=== PATIENT | female | born 1995 ===

== ENCOUNTER 2020-10-18 09:30 | Outpatient (RCR) | payer OTHER, SELFPAY ==
[2020-09-28 12:25] VITALS: BMI 28.2
--- NOTE | 2020-09-28 12:44 | PC.ADMIT ---
Patient is a 25 year old female who was seen by [facility] crisis, as suggested by her OBGYN, who referred patient to [facility] d/t increased depression with SI and increased anxiety secondary to being 22 weeks and having relationship issues with the father of her unborn child whom she lives with. Prior to crisis evaluation it was reported that patient tried to drown herself in the bathtub however stopped herself as she thought about her unborn child. Patient reports increased depression since . Feeling overwhelmed and alone. Reports she has a sister who is supportive who she can reach out to if feeling unsafe. Patient reports she is currently taking 4 college courses that will be completed in October however is struggling in her classes d/t symptoms. Reports trauma history. She started seeing a therapist in 9th grade. Patient is alert and oriented x4. Calm and cooperative. Presents with depressed mood and affect. Denied Si. Asked patient if she started to feel unsafe who could she contact, patient stated her sister who is supportive. Patient also has the crisis number if needed. Patient gave verbal permission to email her a copy of her safety plan. Medications reconciled with patient and patient's pharmacy.
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
--- NOTE | 2020-09-29 10:21 | PC.NURSE ---
Margaret called Jil this morning and stated she was in the ER all night last night and needs to rest therefore will not be attending the program today. She did not elaborate as to why she was in the ER. I called patient and left a message for her to call me back to F/U.
--- NOTE | 2020-09-29 10:59 | PC.NURSE ---
Patient called me back. She stated that she was instructed by her batch mixer operator to go to the ER to get treatment for a bladder infection. Patient stated that she and the baby are ok and was prescribed antibiotics. Patient stated she spent the majority of the night in the ER. Plans on returning to [facility] on Friday.
--- NOTE | 2020-10-06 09:33 | PC.NURSE ---
Clara was scheduled to see the prescriber today 10/06/20 at 1:00 however she is not in the program today as she told [employer] that she was not going to be attending PHP on 10/06/20.
--- NOTE | 2020-10-06 13:35 | PC.NURSE ---
I called and placed a referral to [facility] for pt at her request.
--- NOTE | 2020-10-09 14:17 | HO.PHPPROGNO ---
Subjective Subjective Date of Service: 10/09/20 Reason For Visit: MDD F32.9, History of Trauma Z91.49, Z65.8 Guardianship: No Medical Problems Affecting Mental Status: No Interim History: Clara reports that she is feeling physically tired. She states that some of this may be from depression, and also may be due to her . She then stated I am okay mentally . She did describe stressors such as trying to get her own apartment, as she believes this will be the healthiest option going forward. She is also concerned about school, and has asked for an accommodation letter, which states her diagnosis and the need for extended time with tests and deadlines for work, due to her current depression and level of stress this summer. She reports that she feels the sertraline 50 mg is working somewhat, and due to is not interested in increasing this dose at this time. She was informed that this telegraphic typewriter repairer will provide a letter. We discussed including mental health diagnoses, and she stated that she wanted this in the letter. No medication changes at this time. Will follow-up in 1 week, sooner if needed, and letter will be provided tomorrow. Medication Compliance: Yes Side effects from medications: No Attending Groups: Yes Review of Systems Review of Systems A full review of systems was completed, and was negative except for feeling tired , And continues with level of stress and depression symptoms. Yes all other systems are reviewed and are negative Mental Status Exam Mental Status Exam Narrative: Well-developed, well-nourished, female, in no apparent distress. Appropriately dressed. Alert and oriented x4. Patient Appearance: Well Grooomed and Fatigued Patient Orientation: Person, Place, Time and Situation Level of Consciousness: Awake and Appropriate Patient Behavior: Appropriate, Cooperative and Good Eye Contact Mood Description: Appropriate and Depressed Affect Description: Calm, Appropriate and Depressed Patient Cognition Impaired: No Ability to Follow Directions: Excellent Speech Pattern: Clear and Appropriate Memory Description: Intact Hallucinations: None Delusions: Not Present Thought Process: Intact Thought Content: positive for Intact Depressive Symptoms: Increased Fatigue Judgement: Good Diagnostics Vital Signs (24Hr): Body Mass Index 28.2 Assessment & Plan Assessment & Plan (1) Major depressive disorder, recurrent episode with anxious distress: Status: Acute Code(s): F33.9 - Major depressive disorder, recurrent, unspecified Assessment and Plan: Patient states I am okay mentally . No new medication changes. Patient is requesting accommodation letter for school this summer regarding depression, stress level, and requesting extra time for tests and turning in assignments. This provider will write letter, to be available for patient tomorrow. Plan to follow up next week, sooner if needed. Patient educated on: diagnosis, medication risk/benefits, therapeutic strategies and medical condition ( Affects of on feelings of fatigue, in addition to depression and stress level. ) Informed Consent: understands Reason for contiued partial hosp. stay Substantial Risk for: inability to function Certification I certify that partial hospital treatment is medically necessary due to the symptoms and problems resulting from the patient's mental illness and the failure to treat the patient at the partial hospital level of care would likely result in the patient requiring inpatient psychiatric care which could not be prevented at a less intensive level of care. Greater than 50% of the session was spent on counseling and/or coordination of care Discharge Plan Discharge Attending provider: Raghu Vail Medications: No Action albuterol sulfate 2.5 mg /3 mL (0.083 %) Solution For Nebulization 2.5 mg INHALATION Q6H RF: 0 promethazine 25 mg Tablet 25 mg PO Q8H PRN (Reason: Nausea And Vomiting) RF: 0 albuterol sulfate 90 mcg/actuation Hfa Aerosol Inhaler 2 puff INHALATION Q6H PRN (Reason: Shortness Of Breath Or Wheezing) RF: 0 sertraline [Zoloft] 50 mg Tablet 50 mg PO DAILY RF: 0 Flintstones Tab Chew 1 tab 1 tab PO DAILY RF: 0 Stand Alone Forms: Patient Portal Discharge page Telehealth Telehealth Location of provider rendering services: practice address Location of patient: address on file Patient Identification confirmed using: Name, : Yes Telehealth method: video Patient verbally consented to treatment: Yes Patient verbally consented to billing insurance company: Yes Patient informed of any privacy concerns related to visit: Yes Time spent with patient (mins): 15
--- NOTE | 2020-10-18 11:28 | PC.NURSE ---
Patient scheduled to discharge from the program today. Reviewed patient medications with patient. Patient stated she is not longer taking Sertraline as she stated she did not see a benefit from the medication and thus did not want to continue this medication as she is and it was not working. Kandy Negrete NP aware. Medication education provided. Patient feeling safe, no SI.
--- NOTE | 2020-10-18 15:09 | P.PNPSP_ITS ---
Subjective Subjective Date of Service: 10/18/20 Reason For Visit: MDD F32.9, History of Trauma Z91.49, Z65.8 Subjective Notes: Baumann Warning Guardianship: No Medical Problems Affecting Mental Status: Yes () Interim History: Clara reports that she stopped taking the prescribed sertraline approximately 1 week ago. When asked why, she stated it's not helping me . Patient's due date is January 26. She stated that she also did not feel comfortable taking an antidepressant while , as she was concerned about the baby's health. She states that she begins working with a therapist soon, and that hopefully this will help her manage her depressive symptoms. Education was provided regarding 3rd trimester and the use of SSRIs. We also discussed depression, signs and symptoms to watch for, and seeking help when needed. she stated that she understood, and would do this if she feels herself suffering from any type of depression/anxiety in the future. She stated that she may reconsider medications, but that she is not interested at this time. Patient's last day is today in [facility]. She states that she did find this program helpful, and found the groups supportive. Medication Compliance: No ( Patient stopped taking sertraline approximately 1 week ago.) Side effects from medications: No Attending Groups: Yes Review of Systems Review of Systems A complete review of systems was done and was negative with the exception of pertinent positives noted in history of presenting illness. Yes all other systems are reviewed and are negative Mental Status Exam Mental Status Exam Narrative: Well-developed, well-nourished female, in no apparent distress or discomfort. No safety concerns. Patient Appearance: Well Grooomed and Appropriate Patient Orientation: Person, Place, Time and Situation Level of Consciousness: Awake, Appropriate and Alert Patient Behavior: Appropriate Mood Description: Appropriate Affect Description: Appropriate and Depressed Patient Cognition Impaired: No Ability to Follow Directions: Excellent Speech Pattern: Clear Memory Description: Intact Hallucinations: None Delusions: Not Present Thought Process: Intact Thought Content: positive for Intact Depressive Symptoms: Sleeping More Than Usual Judgement: Good Judgement and Insight: judgment and insight appear grossly intact. Diagnostics Vital Signs (24Hr): Body Mass Index 28.2 Assessment & Plan Assessment & Plan (1) Major depressive disorder, recurrent episode with anxious distress: Status: Acute Code(s): F33.9 - Major depressive disorder, recurrent, unspecified Assessment and Plan: Patient no longer taking sertraline. Appears somewhat depressed, although no safety concerns no thoughts of SI or harm to others. Patient will start working with an individual therapist soon. Education provided regarding depression, use of antidepressants such as SSRIs, depression, and seeking help and re-initiation of medications if needed. Patient stated that she understood. Patient educated on: diagnosis, medication risk/benefits and therapeutic strategies Informed Consent: understands Reason for contiued partial hosp. stay Substantial Risk for: stable for discharge Certification I certify that partial hospital treatment is medically necessary due to the symptoms and problems resulting from the patient's mental illness and the failure to treat the patient at the partial hospital level of care would likely result in the patient requiring inpatient psychiatric care which could not be prevented at a less intensive level of care. Greater than 50% of the session was spent on counseling and/or coordination of care Discharge Plan Discharge Attending provider: Raghu Vail Additional Instructions: Intake appointment (telehealth/phone) with Zulma Fuller therapist from [facility] on 10/19/2020 at 10am. Medications: No Action albuterol sulfate 2.5 mg /3 mL (0.083 %) Solution For Nebulization 2.5 mg INHALATION Q6H RF: 0 promethazine 25 mg Tablet 25 mg PO Q8H PRN (Reason: Nausea And Vomiting) RF: 0 albuterol sulfate 90 mcg/actuation Hfa Aerosol Inhaler 2 puff INHALATION Q6H PRN (Reason: Shortness Of Breath Or Wheezing) RF: 0 Flintstones Tab Chew 1 tab 1 tab PO DAILY RF: 0 Stand Alone Forms: Patient Portal Discharge page Telehealth Telehealth Location of provider rendering services: practice address Location of patient: address on file Patient Identification confirmed using: Name, : Yes Telehealth method: video Patient verbally consented to treatment: Yes Patient verbally consented to billing insurance company: Yes Patient informed of any privacy concerns related to visit: Yes Time spent with patient (mins): 15
== END 2020-10-19 07:47 | disposition home or self-care (01) ==
LOC: HO.PHPA 09:30
PROVIDERS: Visit Provider Psychiatry & Neurology Psychiatry
DX: O99.340 Other mental disorders complicating pregnancy, unspecified trimester (principal); F33.9 Major depressive disorder, recurrent, unspecified; Z3A.00 Weeks of gestation of pregnancy not specified; Z91.14 Patient's other noncompliance with medication regimen; Z91.49 Other personal history of psychological trauma, not elsewhere classified; Z91.5 Personal history of self-harm
CPT/HCPCS: 90791; 90853